=== PATIENT | male | born 1990 | race Two or more races ===

== ENCOUNTER 2016-12-09 13:54 | Emergency (ER) | payer SELFPAY ==
[2016-12-09 13:42] LABS: URINE SOURCE CLEAN CATCH
[2016-12-09 13:50] LABS: URINE APPEARANCE CLOUDY; URINE BLOOD 1+ (NEG); URINE COLOR DK YELLOW; URINE GLUCOSE NEG (NEG); URINE KETONE TRACE (NEG); URINE LEUKOCYTE ESTERASE 3+ (NEG); URINE NITRATE NEG (NEG); URINE PROTEIN 1+ (NEG); URINE SPECIFIC GRAVITY 1.035 (1.003-1.035)
[2016-12-09 13:52] LABS: CULTURE INDICATED? YES; U HYALINE CASTS AUWI 0-2 /[LPF]; URINE BACTERIA AUWI NEG (NEGATIVE); URINE SQUAMOUS EPITHELIAL CELL NONE SEEN /[HPF]; UWBCS1 AUWI INNUM (0-5)
[2016-12-09 14:26] LABS: URINE BILIRUBIN NEG (NEG)
[2016-12-13 09:12] LABS: CHLAMYDIA TRACH Not Detected (Not Detected); N GONOR Detected (Not Detected)
== END 2016-12-09 14:36 | disposition home or self-care (01) ==
LOC: CFTX 13:54
PROVIDERS: Physician Assistant
DX: A54.01 Gonococcal cystitis and urethritis, unspecified (principal)
CPT/HCPCS: 81003; 87086; 87491; 87591; 96372; 99283; J0696